=== PATIENT | female | born 1940 | race Caucasian/White ===

== ENCOUNTER → 2016-11-05 | Outpatient (REF) | payer MEDICARE, OTHER ==
[2016-11-05 12:15] LABS: MEAN CORPUSCULAR HEMOGLOBIN 29.3 pg (27.0-33.0); MEAN CORPUSCULAR VOLUME 86.1 fl (80.0-96.0); RED CELL DISTRIBUTION WIDTH 12.6 % (11.5-14.5); WHITE BLOOD COUNT 6.1 K/mm3 (4.0-10.0)
[2016-11-05 12:19] LABS: ALBUMIN 3.5 GM/DL (3.2-5.2); ALBUMIN/GLOBULIN RATIO 1.21 (1.00-1.93); ALKALINE PHOSPHATASE 97 U/L (45-117); ALT/SGPT 26 U/L (12-78); ANION GAP 6 MEQ/L (8-16); AST/SGOT 13 U/L (15-37); BILIRUBIN,TOTAL 0.4 MG/DL (0.2-1.0); BLOOD UREA NITROGEN 14 MG/DL (7-18); CALCIUM LEVEL 9.3 MG/DL (8.8-10.2); CARBON DIOXIDE LEVEL 31 MEQ/L (21-32); CHLORIDE LEVEL 105 MEQ/L (98-107); CHOLESTEROL LEVEL 150 MG/DL (<200); CREATININE FOR GFR 0.83 MG/DL (0.55-1.02); DIGOXIN LEVEL 1.2 NG/ML (0.5-2.0); GLOMERULAR FILTRATION RATE > 60.0 (>39); GLUCOSE, FASTING 113 MG/DL (83-110); POTASSIUM SERUM 4.4 MEQ/L (3.5-5.1); SODIUM LEVEL 142 MEQ/L (136-145); TOTAL PROTEIN 6.4 GM/DL (6.4-8.2); TRIGLYCERIDES LEVEL 123 MG/DL (<150)
== END ==
LOC: M SFHCCLAY 07:24
PROVIDERS: ATTEND Family Medicine
DX: I47.1 Supraventricular tachycardia (principal); I35.0 Nonrheumatic aortic (valve) stenosis; E78.2 Mixed hyperlipidemia; E03.9 Hypothyroidism, unspecified

== ENCOUNTER → 2017-04-07 | Outpatient (CLI) | payer MEDICARE, BC, OTHER ==
--- NOTE | 2017-04-07 12:32 | REPMRS ---
Patient History The patient states she had a clinical breast exam in 03/2017. Patient is postmenopausal. Family history of pancreatic cancer in father, breast cancer in maternal aunt at age 50 or over, colorectal cancer in paternal aunt at age 50 or over, ovarian cancer in paternal cousin, breast cancer in 2 other paternal cousins under age 50, and breast cancer in niece. Benign ultrasound-guided core biopsy of both breasts, March 29, 2015. Benign excisional biopsy of the right breast, 2009. Taking unspecified hormones for 10 years. Digital Woman Screen Mammo: April 07, 2017 - Exam #: [id number] Bilateral CC and MLO view(s) were taken. Technologist: Marlin Anderson, Technologist Prior study comparison: March 15, 2016, digital woman screen mammo performed at [facility]. October 19, 2015, right breast digital mammo diagnostic unilateral, performed at [facility]. FINDINGS: There are scattered fibroglandular densities. There has been no change in the appearance of the mammogram from the prior studies. There is a mild amount of residual fibroglandular tissue which is fairly symmetric. There is no interval development of dominant mass, architectural distortion, or clustered microcalcification suggestive of malignancy. ASSESSMENT: BI-RADS/ACR category 1 mammogram. Negative. Recommendation Routine screening mammogram in 1 year (for women over age 40). This mammogram was interpreted with the aid of an FDA-approved computer-aided dectection system. Electronically Signed By: Dirk Segundo MD 04/07/17 [id number]
== END ==
LOC: M WHC 11:06
PROVIDERS: ATTEND Nurse Practitioner Women's Health
DX: Z01.419 Encounter for gynecological examination (general) (routine) without abnormal findings (principal); Z12.31 Encounter for screening mammogram for malignant neoplasm of breast; Z78.0 Asymptomatic menopausal state; Z92.89 Personal history of other medical treatment; Z92.29 Personal history of other drug therapy
CPT/HCPCS: G0101; G0202

== ENCOUNTER → 2017-12-02 | Outpatient (CLI) | payer MEDICARE, BC, OTHER | LOC: M PLARAD 15:31 | DX: I65.23 Occlusion and stenosis of bilateral carotid arteries (principal) | CPT/HCPCS: 70551 ==

== ENCOUNTER → 2017-12-31 | Outpatient (REF) | payer MEDICARE, BC, OTHER ==
[2017-12-31 11:35] LABS: INR 1.54; PROTHROMBIN TIME 18.7 SECONDS (12.1-14.4)
== END ==
LOC: M LABDRAWC 11:15
DX: I48.91 Unspecified atrial fibrillation (principal)
CPT/HCPCS: 85610

== ENCOUNTER → 2018-01-05 | Outpatient (REF) | payer MEDICARE, OTHER ==
[2018-01-05 11:27] LABS: HEMOGLOBIN 11.7 g/dl (12.0-15.5); MEAN CORPUSCULAR HEMOGLOBIN 28.9 pg (27.0-33.0); MEAN CORPUSCULAR HGB CONC 32.5 g/dl (32.0-36.5); MEAN CORPUSCULAR VOLUME 88.9 fl (80.0-96.0); PLATELET COUNT, AUTOMATED 497 10^3/uL (150-450); RED BLOOD COUNT 4.05 10^6/uL (4.00-5.40); WHITE BLOOD COUNT 9.4 10^3/uL (4.0-10.0)
[2018-01-05 11:54] LABS: ANION GAP 9 MEQ/L (8-16); BLOOD UREA NITROGEN 17 MG/DL (7-18); CALCIUM LEVEL 9.5 MG/DL (8.8-10.2); CARBON DIOXIDE LEVEL 27 MEQ/L (21-32); CHLORIDE LEVEL 104 MEQ/L (98-107); CREATININE FOR GFR 0.97 MG/DL (0.55-1.30); DIGOXIN LEVEL 1.1 NG/ML (0.5-2.0); FREE T4 0.81 NG/DL (0.76-1.46); GLUCOSE, FASTING 80 MG/DL (70-100); POTASSIUM SERUM 4.4 MEQ/L (3.5-5.1); SODIUM LEVEL 140 MEQ/L (136-145)
== END ==
LOC: M SFHCCLAY 09:00
DX: Z95.2 Presence of prosthetic heart valve (principal); E07.9 Disorder of thyroid, unspecified
CPT/HCPCS: 80162

== ENCOUNTER → 2018-01-27 | Outpatient (REF) | payer MEDICARE, OTHER | LOC: M SFHCCLAY 07:39 | DX: E03.9 Hypothyroidism, unspecified (principal) | CPT/HCPCS: 84443 ==

== ENCOUNTER 2018-02-19 12:39 | Outpatient (RCR) | payer MEDICARE, BC, OTHER | END 2018-03-08 | LOC: M CR 12:39 | DX: Z95.3 Presence of xenogenic heart valve (principal) | CPT/HCPCS: 93798 ==

== ENCOUNTER 2018-03-09 13:45 | Outpatient (RCR) | payer MEDICARE, BC, OTHER | END 2018-04-08 | LOC: M CR 13:45 | DX: Z95.3 Presence of xenogenic heart valve (principal) | CPT/HCPCS: 93798 ==

== ENCOUNTER → 2018-03-16 | Outpatient (REF) | payer MEDICARE, OTHER ==
[2018-03-16 13:00] LABS: FREE T4 1.08 NG/DL (0.76-1.46)
== END ==
LOC: M SFHCCLAY 08:09
DX: E03.9 Hypothyroidism, unspecified (principal)
CPT/HCPCS: 84443

== ENCOUNTER → 2018-04-08 | Outpatient (CLI) | payer MEDICARE, BC, OTHER | LOC: M WHC 13:02 | DX: Z12.31 Encounter for screening mammogram for malignant neoplasm of breast (principal) | CPT/HCPCS: 77067 ==

== ENCOUNTER 2018-04-09 14:56 | Outpatient (RCR) | payer MEDICARE, BC, OTHER | END 2018-05-08 | LOC: M CR 14:56 | DX: Z95.3 Presence of xenogenic heart valve (principal) | CPT/HCPCS: 93798 ==

== ENCOUNTER → 2018-12-08 | Outpatient (REF) | payer MEDICARE, OTHER ==
[~2018-12-08] MED LIST: ASPI81TA26 PO; ATEN25TA PO; ATOR1TAB19 PO; CALCTAB41 PO; COLA100C5 PO; DIGO0.12 PO; DOXE150C PO; FERR325T3 PO; FLUO20CA8 PO; LEVO100T5 PO; MAGN1TAB26 PO; OMEP20TA PO; VAGI10TA PV
== END ==
LOC: M SFHCCLAY 15:39
PROVIDERS: ATTEND Family Medicine
DX: Z79.899 Other long term (current) drug therapy (principal); F33.0 Major depressive disorder, recurrent, mild; Z53.8 Procedure and treatment not carried out for other reasons

== ENCOUNTER → 2018-12-09 | Outpatient (REF) | payer MEDICARE, OTHER ==
[2018-12-09 12:09] LABS: FREE T4 1.01 NG/DL (0.76-1.46); THYROID STIMULATING HORMONE 2.45 uIU/ML (0.358-3.740)
[2018-12-12 00:09] LABS: DOXEPIN 139 ng/mL (Not Estab.)
== END ==
LOC: M SFHCCLAY 07:48
PROVIDERS: ATTEND Family Medicine
DX: F33.0 Major depressive disorder, recurrent, mild (principal); Z79.899 Other long term (current) drug therapy
CPT/HCPCS: 84439; 84443; G0480

== ENCOUNTER → 2019-09-30 | Outpatient (REF) | payer MEDICARE, OTHER ==
[~2019-09-30] MED LIST changes: -DIGO0.12 PO; +DIGO0.123 PO; +FLUO20CA20 PO; -FLUO20CA8 PO; +OMEP-358 PO; -OMEP20TA PO
[2019-09-30 13:04] LABS: ALBUMIN 3.8 GM/DL (3.2-5.2); ALT/SGPT 28 U/L (12-78); BILIRUBIN,TOTAL 0.4 MG/DL (0.2-1.0); BLOOD UREA NITROGEN 15 MG/DL (7-18); CALCIUM LEVEL 9.7 MG/DL (8.8-10.2); CARBON DIOXIDE LEVEL 29 MEQ/L (21-32); CHLORIDE LEVEL 104 MEQ/L (98-107); CHOLESTEROL LEVEL 170 MG/DL (<200); CHOLESTEROL RISK RATIO 4.146 (<5); CREATININE FOR GFR 0.89 MG/DL (0.55-1.30); GLOMERULAR FILTRATION RATE > 60.0 (>32); GLUCOSE, FASTING 103 MG/DL (70-100); HDL CHOLESTEROL 41 MG/DL (>40); LDL CHOLESTEROL 89 MG/DL (<100); MAGNESIUM LEVEL 2.4 MG/DL (1.8-2.4); NON-HDL-C 129 MG/DL; POTASSIUM SERUM 4.3 MEQ/L (3.5-5.1); SODIUM LEVEL 138 MEQ/L (136-145); TOTAL PROTEIN 6.9 GM/DL (6.4-8.2); TRIGLYCERIDES LEVEL 201 MG/DL (<150)
== END ==
LOC: M LABDRAWC 11:43
PROVIDERS: ATTEND Physician Assistant
DX: I35.2 Nonrheumatic aortic (valve) stenosis with insufficiency (principal); I47.1 Supraventricular tachycardia; E78.00 Pure hypercholesterolemia, unspecified

== ENCOUNTER → 2019-11-17 | Outpatient (CLI) | payer MEDICARE, BC, OTHER ==
--- NOTE | 2019-11-17 11:48 | REPMRS ---
Patient History The patient states she has not had a clinical breast exam in over a year. Family history of breast cancer under age 50 in paternal cousin, breast cancer at age 50 or over in paternal cousin, breast cancer in niece, breast cancer at age 50 or over in maternal aunt, colorectal cancer at age 50 or over in paternal aunt, pancreatic cancer in father, ovarian cancer in paternal cousin. Benign ultrasound-guided core biopsy of both breasts, March 29, 2015. Benign excisional biopsy of the right breast, 2009. Taking unspecified hormones for 11 years. 3D TOMOSYNTHESIS WAS PERFORMED. [facility] lifetime risk for breast cancer is 3.9%. VOLPARA DENSITY B. Digital Woman Screen Mammo: November 17, 2019 - Exam #: [id number] Bilateral CC and MLO view(s) were taken. Technologist: Marley Silverio, Technologist Prior study comparison: April 08, 2018, bilateral digital woman screen mammo performed at [facility]. April 07, 2017, digital woman screen mammo performed at [facility]. FINDINGS: There are scattered fibroglandular densities. There has been no change in the appearance of the mammogram from the prior studies. There is a mild amount of residual fibroglandular tissue which is fairly symmetric. There is no interval development of dominant mass, architectural distortion, or clustered microcalcification suggestive of malignancy. Assessment: BI-RADS/ACR category 1 mammogram. Negative Mammogram. Recommendation Routine screening mammogram in 1 year (for women over age 40). This mammogram was interpreted with the aid of an FDA-approved computer-aided dectection system. Electronically Signed By: Dirk Segundo MD 11/17/19 [id number]
== END ==
LOC: M WHC 10:56
PROVIDERS: ATTEND Family Medicine
DX: Z12.31 Encounter for screening mammogram for malignant neoplasm of breast (principal); Z80.3 Family history of malignant neoplasm of breast; Z80.0 Family history of malignant neoplasm of digestive organs; Z80.41 Family history of malignant neoplasm of ovary

== ENCOUNTER → 2019-11-26 | Outpatient (CLI) | payer MEDICARE, BC, OTHER ==
--- NOTE | 2019-11-26 16:59 | REP ---
REASON: Atraumatic pain. There is mild asymmetric hip joint space narrowing with minimal femoral head marginal osteophytosis. There is no fracture, dislocation, or subluxation. IMPRESSION: Mild chronic changes. Electronically Signed by Duy Herman DO 11/26/2019 05:08 P
== END ==
LOC: M CLY 15:15
PROVIDERS: ATTEND Family Medicine
DX: M16.11 Unilateral primary osteoarthritis, right hip (principal); M25.551 Pain in right hip

== ENCOUNTER → 2020-03-30 | Outpatient (CLI) | payer MEDICARE, BC, OTHER ==
--- NOTE | 2020-03-30 15:34 | REP ---
INDICATION: S89.92XA LEFT KNE PAIN INJURY COMPARISON: None. TECHNIQUE: AP, lateral, bilateral oblique and sunrise views. FINDINGS: Very mild age-related changes are suggested without significant overt osteoarthritic findings. No evidence for acute fracture or dislocation. Small 12 mm chronic calcified density noted posterior to the proximal tibia likely representing sequelae of old soft tissue injury. No effusion. IMPRESSION: Essentially normal age-appropriate examination. As above. No evidence for acute injury. <Electronically signed by Issac Hancock > 03/30/20 [id number]
== END ==
LOC: M CLY 14:30
PROVIDERS: ATTEND Physician Assistant
DX: S89.92XA Unspecified injury of left lower leg, initial encounter (principal); X58.XXXA Exposure to other specified factors, initial encounter; Y92.9 Unspecified place or not applicable
CPT/HCPCS: 73564; G0463

== ENCOUNTER → 2020-10-12 | Outpatient (CLI) | payer MEDICARE, BC, OTHER ==
--- NOTE | 2020-10-12 11:29 | REP ---
INDICATION: DISC DEGENERATION. COMPARISON: Comparison MRI study is from July 17, 2015.. TECHNIQUE: Sagittal and axial T1 and T2-weighted scans are acquired in the usual fashion with and without fat saturation. Sequences include spin echo, turbo spin-echo, and STIR imaging sequences. FINDINGS: Lumbar vertebral body heights are preserved. Alignment is normal. Tip of the conus medullaris is normal in position and appearance at L1-2. There is diffuse degenerative disc disease again noted. Normal caliber aorta. No extra vertebral abnormality is appreciated. Axial and sagittal images at the L1-2 disc level demonstrate diffuse disc bulging. This effaces the ventral subarachnoid space. There is no spinal stenosis. Minimal facet hypertrophy is present. Findings are unchanged. At L2-L3, today's study demonstrates a moderate left posterior and left foraminal disc protrusion with discogenic spurring producing left-sided neural foraminal encroachment. This is a new finding. There is progressive disc space narrowing at L2-3 compared to the prior study. Diffuse bulging is seen in the remainder of the disc margin indenting the thecal sac. Canal size is borderline. There is mild bilateral facet hypertrophy. At L3-4, there is degenerative disc narrowing and desiccation. Diffuse disc bulging is seen a little more prominent in the left foraminal left posterior portion of the disc. This is unchanged from the comparison study. There is left-sided foraminal narrowing at 3 4. The associated discogenic spurring is slightly more pronounced. There is ligamentum flavum and facet hypertrophy bilaterally at L3-4 unchanged. At L4-L5, the previous study showed a large right posterior disc protrusion. This is again visible although it appears slightly smaller. There is associated spurring. There is central canal stenosis [id number] in degree due to disc bulging, the disc protrusion, and ligamentum flavum and facet hypertrophy. The diffuse disc bulging is little more prominent and the and central canal stenosis is slightly more prominent as result. There is bilateral neural foraminal narrowing moderate in degree. At the L5-S1 level, there is mild diffuse disc bulging. There is right-sided neural foraminal narrowing due to disc bulging and spurring in combination with facet hypertrophy. These findings are unchanged from the comparison MR study. IMPRESSION: Advanced diffuse degenerative spondylosis. There is mild to moderate central canal stenosis at L4-5 with persistent although slightly smaller right posterior disc protrusion. There is a left foraminal and left posterior disc protrusion at L2-3 which is a new finding. Neural foraminal narrowing as above. <Electronically signed by Julio C Gupta > 10/12/20 [id number]
== END ==
LOC: M PLARAD 09:20
PROVIDERS: ATTEND Orthopaedic Surgery
DX: M51.36 Other intervertebral disc degeneration, lumbar region (principal); M48.061 Spinal stenosis, lumbar region without neurogenic claudication; M51.26 Other intervertebral disc displacement, lumbar region

== ENCOUNTER → 2021-10-09 | Outpatient (REF) | payer MEDICARE, OTHER ==
[~2021-10-09] MED LIST changes: +FLUO-96 PO; -FLUO20CA20 PO
[2021-10-09 12:19] LABS: HEMATOCRIT 43.8 % (36.0-47.0); MEAN CORPUSCULAR HEMOGLOBIN 28.1 pg (27.0-33.0); PLATELET COUNT, AUTOMATED 283 10^3/uL (150-450); RED BLOOD COUNT 4.98 10^6/uL (4.00-5.40); WHITE BLOOD COUNT 7.4 10^3/uL (4.0-10.0)
[2021-10-09 13:07] LABS: ALBUMIN 3.8 GM/DL (3.2-5.2); BILIRUBIN,TOTAL 0.4 MG/DL (0.2-1.0); CALCIUM LEVEL 9.5 MG/DL (8.8-10.2); CHOLESTEROL RISK RATIO 3.386 (<5); CREATININE FOR GFR 1.04 MG/DL (0.55-1.30); FREE T4 1.01 NG/DL (0.76-1.46); POTASSIUM SERUM 4.6 MEQ/L (3.5-5.1); THYROID STIMULATING HORMONE 4.1 uIU/ML (0.358-3.740); TOTAL PROTEIN 6.5 GM/DL (6.4-8.2)
== END ==
LOC: M SFHCCLAY 07:47
PROVIDERS: ATTEND Family Medicine
DX: E03.9 Hypothyroidism, unspecified (principal); K21.9 Gastro-esophageal reflux disease without esophagitis; E78.2 Mixed hyperlipidemia

== ENCOUNTER → 2022-03-15 | Outpatient (CLI) | payer MEDICARE, BC, OTHER | LOC: M WHC 12:31 | PROVIDERS: ATTEND Physician Assistant | DX: I65.23 Occlusion and stenosis of bilateral carotid arteries (principal) ==

== ENCOUNTER → 2022-08-06 | Outpatient (REF) | payer MEDICARE, OTHER ==
[2022-08-06 17:26] LABS: MAGNESIUM LEVEL 2.2 MG/DL (1.8-2.4)
== END ==
LOC: M SFHCCLAY 11:37
PROVIDERS: ATTEND Family Medicine
DX: I47.1 Supraventricular tachycardia (principal); Z95.2 Presence of prosthetic heart valve

== ENCOUNTER → 2022-08-08 | Outpatient (REF) | payer MEDICARE, OTHER | LOC: M SFHCCLAY 18:02 | PROVIDERS: ATTEND Family Medicine | DX: Z95.2 Presence of prosthetic heart valve (principal); I47.1 Supraventricular tachycardia; Z53.9 Procedure and treatment not carried out, unspecified reason ==

== ENCOUNTER → 2022-09-17 | Outpatient (REF) | payer MEDICARE, OTHER ==
[2022-09-17 12:02] LABS: FREE T3 2.7 PG/ML (2.3-4.2); THYROID STIMULATING HORMONE 3.361 uIU/ML (0.55-4.78)
[2022-09-17 12:04] LABS: FREE T4 0.87 NG/DL (0.89-1.76)
== END ==
LOC: M SFHCCLAY 07:45
PROVIDERS: ATTEND Family Medicine
DX: Z95.2 Presence of prosthetic heart valve (principal); I47.1 Supraventricular tachycardia

== ENCOUNTER → 2023-04-23 | Outpatient (REF) | payer MEDICARE, BC, OTHER ==
[2023-04-23 11:49] LABS: ALBUMIN 3.7 G/DL (3.2-5.2); BILIRUBIN,TOTAL 0.4 MG/DL (0.3-1.2); CALCIUM LEVEL 9.8 MG/DL (8.3-10.6); CHOLESTEROL RISK RATIO 3.83 (<5); CREATININE FOR GFR 0.99 MG/DL (0.55-1.30); DIGOXIN LEVEL 0.7 NG/ML (0.8-2.0); GLOMERULAR FILTRATION RATE 56.9 (>32); HDL CHOLESTEROL 43.5 MG/DL (>40); LDL CHOLESTEROL 99.1 MG/DL (<100); NON-HDL-C 123.5 MG/DL; POTASSIUM SERUM 4.5 MMOL/L (3.5-5.1); TOTAL PROTEIN 6.4 G/DL (5.7-8.2)
[2023-04-23 11:50] LABS: HEMATOCRIT 41.4 % (36.0-47.0); HEMOGLOBIN 13.4 g/dl (12.0-15.5); MEAN CORPUSCULAR HEMOGLOBIN 28.6 pg (27.0-33.0); MEAN CORPUSCULAR HGB CONC 32.4 g/dl (32.0-36.5); MEAN CORPUSCULAR VOLUME 88.3 fl (80.0-96.0); PLATELET COUNT, AUTOMATED 284 10^3/uL (150-450); RED BLOOD COUNT 4.69 10^6/uL (4.00-5.40); WHITE BLOOD COUNT 6.2 10^3/uL (4.0-10.0)
[2023-04-23 11:51] LABS: FREE T4 0.91 NG/DL (0.89-1.76); THYROID STIMULATING HORMONE 6.477 uIU/ML (0.55-4.78)
== END ==
LOC: M SFHCCLAY 08:43
PROVIDERS: ATTEND Family Medicine
DX: E78.2 Mixed hyperlipidemia (principal); E03.9 Hypothyroidism, unspecified; K21.9 Gastro-esophageal reflux disease without esophagitis

== ENCOUNTER → 2023-06-12 | Outpatient (REF) | payer MEDICARE, BC, OTHER | LOC: M SFHCCLAY 13:55 | PROVIDERS: ATTEND Family Medicine | DX: R73.01 Impaired fasting glucose (principal) ==

== ENCOUNTER → 2023-07-10 | Outpatient (REF) | payer MEDICARE, BC, OTHER ==
[2023-07-10 13:14] LABS: HEMOGLOBIN A1c 6.2 % (4.0-6.0)
[2023-07-10 13:34] LABS: BLOOD UREA NITROGEN 17 MG/DL (9-23); CALCIUM LEVEL 9.7 MG/DL (8.3-10.6); CARBON DIOXIDE LEVEL 32 MMOL/L (20-31); CHLORIDE LEVEL 104 MMOL/L (98-107); CREATININE FOR GFR 0.93 MG/DL (0.55-1.30); GLOMERULAR FILTRATION RATE > 60.0 (>32); GLUCOSE, FASTING 122 MG/DL (74-106); POTASSIUM SERUM 4.8 MMOL/L (3.5-5.1); SODIUM LEVEL 140 MMOL/L (136-145)
== END ==
LOC: M SFHCCLAY 07:50
PROVIDERS: ATTEND Family Medicine
DX: R73.01 Impaired fasting glucose (principal)

== ENCOUNTER → 2023-11-07 | Outpatient (REF) | payer MEDICARE, OTHER | LOC: M LAB REF 13:30 | PROVIDERS: ATTEND Ophthalmology | DX: L72.0 Epidermal cyst (principal); L82.1 Other seborrheic keratosis ==

== ENCOUNTER → 2024-03-02 | Outpatient (CLI) | payer MEDICARE, BC, OTHER | LOC: M WHC 18:09 | PROVIDERS: ATTEND Family Medicine | DX: Z12.31 Encounter for screening mammogram for malignant neoplasm of breast (principal); Z53.9 Procedure and treatment not carried out, unspecified reason ==

== ENCOUNTER → 2024-03-17 | Outpatient (REF) | payer MEDICARE, BC, OTHER ==
[2024-03-17 18:24] LABS: ALBUMIN 3.6 G/DL (3.2-5.2); BILIRUBIN,TOTAL 0.4 MG/DL (0.3-1.2); CALCIUM LEVEL 10.9 MG/DL (8.3-10.6); CREATININE FOR GFR 0.98 MG/DL (0.55-1.30); GLOMERULAR FILTRATION RATE 57.4 (>32); POTASSIUM SERUM 4.3 MMOL/L (3.5-5.1); THYROID STIMULATING HORMONE 5.581 uIU/ML (0.55-4.78); TOTAL PROTEIN 6.5 G/DL (5.7-8.2)
[2024-03-17 18:25] LABS: FREE T4 1.17 NG/DL (0.89-1.76)
[2024-03-17 18:30] LABS: HEMATOCRIT 40.7 % (36.0-47.0); HEMOGLOBIN 13.3 g/dl (12.0-15.5); MEAN CORPUSCULAR HEMOGLOBIN 29.4 pg (27.0-33.0); MEAN CORPUSCULAR HGB CONC 32.7 g/dl (32.0-36.5); MEAN CORPUSCULAR VOLUME 89.8 fl (80.0-96.0); PLATELET COUNT, AUTOMATED 269 10^3/uL (150-450); RED BLOOD COUNT 4.53 10^6/uL (4.00-5.40); WHITE BLOOD COUNT 6.5 10^3/uL (4.0-10.0)
[2024-03-17 18:40] LABS: HEMOGLOBIN A1c 6.4 % (4.0-6.0)
== END ==
LOC: M SFHCCLAY 12:37
PROVIDERS: ATTEND Family Medicine
DX: E03.9 Hypothyroidism, unspecified (principal); K21.9 Gastro-esophageal reflux disease without esophagitis; E78.2 Mixed hyperlipidemia; R73.01 Impaired fasting glucose; Z79.899 Other long term (current) drug therapy

== ENCOUNTER → 2024-05-03 | Outpatient (REF) | payer MEDICARE, BC, OTHER ==
[2024-05-03 12:26] LABS: PTH INTACT 69.8 PG/ML (18.5-88.0)
[2024-05-03 12:27] LABS: FREE T4 1.04 NG/DL (0.89-1.76); THYROID STIMULATING HORMONE 8.653 uIU/ML (0.55-4.78)
== END ==
LOC: M SFHCCLAY 07:26
PROVIDERS: ATTEND Family Medicine
DX: E03.9 Hypothyroidism, unspecified (principal); E83.52 Hypercalcemia

== ENCOUNTER → 2024-05-26 | Outpatient (REF) | payer MEDICARE, BC, OTHER | LOC: M SFHCCLAY 16:41 | PROVIDERS: ATTEND Physician Assistant | DX: R39.15 Urgency of urination (principal) ==

== ENCOUNTER → 2024-06-23 | Outpatient (REF) | payer MEDICARE, BC, OTHER ==
[2024-06-23 11:39] LABS: FREE T4 1.14 NG/DL (0.89-1.76); THYROID STIMULATING HORMONE 5.396 uIU/ML (0.55-4.78)
== END ==
LOC: M SFHCCLAY 08:34
PROVIDERS: ATTEND Physician Assistant
DX: E03.9 Hypothyroidism, unspecified (principal); E83.52 Hypercalcemia

== ENCOUNTER → 2024-07-23 | Outpatient (CLI) | payer MEDICARE, BC, OTHER | LOC: M CLY 15:24 | PROVIDERS: ATTEND Physician Assistant | DX: M25.561 Pain in right knee (principal); M25.461 Effusion, right knee ==

== ENCOUNTER → 2024-09-20 | Outpatient (REF) | payer MEDICARE, BC, OTHER | LOC: M SFHCCLAY 11:31 | PROVIDERS: ATTEND Nurse Practitioner Family | DX: E78.2 Mixed hyperlipidemia (principal); K21.9 Gastro-esophageal reflux disease without esophagitis; E03.9 Hypothyroidism, unspecified; F33.0 Major depressive disorder, recurrent, mild ==

== ENCOUNTER → 2024-10-04 | Outpatient (REF) | payer MEDICARE, BC, OTHER ==
[2024-10-04 13:24] LABS: THYROID STIMULATING HORMONE 1.469 uIU/ML (0.55-4.78)
[2024-10-04 13:25] LABS: FREE T4 1.3 NG/DL (0.89-1.76)
[2024-10-04 13:26] LABS: ALBUMIN 3.8 G/DL (3.2-5.2); BILIRUBIN,TOTAL 0.4 MG/DL (0.3-1.2); CALCIUM LEVEL 10.7 MG/DL (8.3-10.6); CHOLESTEROL RISK RATIO 3.93 (<5); GLOMERULAR FILTRATION RATE 55.2 (>32); HDL CHOLESTEROL 41.4 MG/DL (>40); LDL CHOLESTEROL 91.4 MG/DL (<100); NON-HDL-C 121.6 MG/DL; POTASSIUM SERUM 4.4 MMOL/L (3.5-5.1); TOTAL PROTEIN 6.5 G/DL (5.7-8.2)
== END ==
LOC: M SFHCCLAY 09:09
PROVIDERS: ATTEND Nurse Practitioner Family
DX: E78.2 Mixed hyperlipidemia (principal); K21.9 Gastro-esophageal reflux disease without esophagitis; E03.9 Hypothyroidism, unspecified; F33.0 Major depressive disorder, recurrent, mild; Z79.899 Other long term (current) drug therapy

== ENCOUNTER → 2024-12-13 | Outpatient (REF) | payer MEDICARE, OTHER ==
[2024-12-13 12:20] LABS: APPEARANCE, URINE MANUAL CLOUDY (CLEAR); COLOR, URINE MANUAL RED (YELLOW); PH,URINE MAN 6.5 UNITS (5.0 - 7.0); SPECIFIC GRAVITY,URINE MANUAL 1.015 (1.002-1.035)
[2024-12-13 12:21] LABS: BILIRUBIN, URINE MANUAL NEGATIVE (NEGATIVE); BLOOD URINE MANUAL POSITIVE (NEGATIVE); GLUCOSE, URINE (UA) MANUAL NEGATIVE (NEGATIVE); KETONE, URINE MANUAL NEGATIVE (NEGATIVE); LEUKOCYTE ESTERASE, URINE MAN POSITIVE (NEGATIVE); NITRITE, URINE MANUAL OBSCURED (NEGATIVE); PROTEIN, URINE MANUAL 3+ mg/dL (NEGATIVE); UROBILINOGEN, URINE MANUAL NORMAL (NORMAL)
[2024-12-13 12:33] LABS: RBC, URINE TNTC /hpf (0-3); WBC, URINE TNTC /hpf (0-3)
[2024-12-13 12:34] LABS: SQUAMOUS EPITHELIAL CELL URINE NONE SEEN /hpf (SMALL AMT)
[2024-12-13 12:35] LABS: BACTERIA, URINE LARGE AMOUNT; HYALINE CAST, URINE NONE SEEN /lpf (0-1)
== END ==
LOC: M LAB REF 11:54
DX: N39.0 Urinary tract infection, site not specified (principal)

== ENCOUNTER → 2025-01-21 | Outpatient (CLI) | payer MEDICARE, BC, OTHER | LOC: M PLAIMG 10:39 | PROVIDERS: ATTEND Physician Assistant | DX: R42 Dizziness and giddiness (principal); I08.3 Combined rheumatic disorders of mitral, aortic and tricuspid valves ==

== ENCOUNTER → 2025-05-11 | Outpatient (CLI) | payer MEDICARE, BC, OTHER | LOC: M RAD 11:22 | PROVIDERS: ATTEND Physician Assistant | DX: I65.23 Occlusion and stenosis of bilateral carotid arteries (principal) ==